=== PATIENT | male | born 1995 | race Caucasian/White ===

== ENCOUNTER 2022-05-05 17:31 | Emergency (ER) | payer MEDICAID ==
[~2022-05-05] VITALS: Ht 185.4 cm; Wt 79.5 kg
[~2022-05-05 17:31] MED LIST: NO HOME MEDS
[2022-05-05 18:20] VITALS: BP 118/62
== END 2022-05-05 19:30 | disposition home or self-care (01) ==
LOC: ER 17:31
DX: S93.401A Sprain of unspecified ligament of right ankle, initial encounter (principal); W21.07XA Struck by softball, initial encounter; Y93.89 Activity, other specified; Y92.89 Other specified places as the place of occurrence of the external cause; Y99.8 Other external cause status
CPT/HCPCS: 29530; 29540; 73610; 99283

== ENCOUNTER 2023-07-07 10:36 | Emergency (ER) | payer MEDICAID ==
[~2023-07-07] VITALS: Ht 185.4 cm; Wt 67.2 kg
[2023-07-07 10:40] VITALS: BP 119/71; PULSE 58; RESP 16; TEMP 97.8; O2SAT 100
[2023-07-07] MEDS ORDERED: proparacaine 0.5% ophthalmic drops 15ml EACHEYE ONE (11:15)
[2023-07-07] MEDS ORDERED: ciprofloxacin 0.3% 2.5ml ophthalmic solution LEFTEYE STA (11:32)
== END 2023-07-07 12:11 | disposition home or self-care (01) ==
LOC: ER 10:37
DX: T15.02XA Foreign body in cornea, left eye, initial encounter (principal); X58.XXXA Exposure to other specified factors, initial encounter; Y93.89 Activity, other specified; Y92.89 Other specified places as the place of occurrence of the external cause; Y99.8 Other external cause status
CPT/HCPCS: 65220; 99283; 99284

== ENCOUNTER 2023-09-06 09:05 | Emergency (ER) | payer MEDICAID ==
[~2023-09-06] VITALS: Ht 185.4 cm; Wt 76.3 kg
[2023-09-06 09:10] VITALS: BP 127/72; PULSE 98; TEMP 99.7; O2SAT 99
[2023-09-06] MEDS ORDERED: LIDO1ADH58 TOP (10:07)
[2023-09-06] MEDS ORDERED: IBUP-1986 PO (10:07)
[2023-09-06] MEDS ORDERED: ketorolac trometh. 30mg/ml inj. IM ONE (10:10)
[2023-09-06 10:20] VITALS: RESP 16
== END 2023-09-06 10:28 | disposition home or self-care (01) ==
LOC: ER 09:06
DX: R07.81 Pleurodynia (principal); W19.XXXA Unspecified fall, initial encounter; Y93.89 Activity, other specified; Y92.89 Other specified places as the place of occurrence of the external cause; Y99.8 Other external cause status
CPT/HCPCS: 71100; 96372; 99283; J1885

== ENCOUNTER 2024-03-01 09:04 | Emergency (ER) | payer MEDICAID ==
[~2024-03-01] VITALS: Ht 185.4 cm; Wt 78.6 kg
[~2024-03-01 09:04] MED LIST changes: +IBUP-1986 PO; +LIDO1ADH58 TOP
[2024-03-01] MEDS ORDERED: AMOX500C4 PO (10:53)
[2024-03-01] MEDS ORDERED: HYDR-3965 PO (10:53)
[2024-03-01 11:04] VITALS: BP 110/60; PULSE 60; RESP 17; TEMP 97.8; O2SAT 99
== END 2024-03-01 11:07 | disposition home or self-care (01) ==
LOC: ER 09:05
DX: K08.89 Other specified disorders of teeth and supporting structures (principal); Z88.4 Allergy status to anesthetic agent; Z88.6 Allergy status to analgesic agent
CPT/HCPCS: 99283

== ENCOUNTER 2024-11-24 08:25 | Emergency (ER) | payer BC, MEDICAID ==
[~2024-11-24] VITALS: Ht 185.4 cm; Wt 75.1 kg
[2024-11-24 10:05] VITALS: BP 130/76; PULSE 75; RESP 18; TEMP 97.7; O2SAT 98
== END 2024-11-24 10:06 | disposition home or self-care (01) ==
LOC: ER 08:26
DX: R09.81 Nasal congestion (principal); R05.9 Cough, unspecified
CPT/HCPCS: 71045; 99283

== ENCOUNTER 2024-12-01 16:06 | Emergency (ER) | payer BC ==
[~2024-12-01] VITALS: Ht 185.4 cm; Wt 79.7 kg
[2024-12-01] MEDS ORDERED: PSEU120T56 PO (16:50)
[2024-12-01] MEDS ORDERED: FLUT16SP2 BOTHNARES (16:50)
[2024-12-01 16:57] VITALS: BP 122/60; PULSE 78; RESP 16; TEMP 97.7; O2SAT 98
== END 2024-12-01 16:58 | disposition home or self-care (01) ==
LOC: ER 16:06
DX: H69.82 Other specified disorders of Eustachian tube, left ear (principal); Z79.1 Long term (current) use of non-steroidal anti-inflammatories (NSAID); Z79.899 Other long term (current) drug therapy
CPT/HCPCS: 99282; 99283

== ENCOUNTER 2024-12-19 09:55 | Emergency (ER) | payer BC ==
[~2024-12-19] VITALS: Ht 185.4 cm; Wt 81.8 kg
[~2024-12-19 09:55] MED LIST changes: +FLUT16SP2 BOTHNARES; +PSEU120T56 PO
[2024-12-19 10:06] VITALS: BP 115/68; PULSE 80; RESP 16; O2SAT 98
[2024-12-19 11:27] VITALS: TEMP 97.7
== END 2024-12-19 11:28 | disposition home or self-care (01) ==
LOC: ER 09:55
DX: H01.001 Unspecified blepharitis right upper eyelid (principal); Z79.1 Long term (current) use of non-steroidal anti-inflammatories (NSAID); Z79.899 Other long term (current) drug therapy
CPT/HCPCS: 99282

== ENCOUNTER 2025-06-16 18:43 | Emergency (ER) | payer BC ==
[~2025-06-16] VITALS: Ht 185.4 cm; Wt 72.7 kg
[2025-06-16 18:59] VITALS: TEMP 97.6
--- NOTE | 2025-06-16 19:56 | RADIOLOGY REPORT ---
CLINICAL INDICATION: FOOT PAIN LEFT TECHNIQUE: DI FOOT, COMPLETE (3VW MIN) Comparison: ANKLE, COMPLETE(3VW MIN) on DOS: 05/05/22 FINDINGS/IMPRESSION: : There is no evidence of acute fracture or dislocation. Soft tissues are unremarkable. Plantar calcaneal enthesophyte.
[2025-06-16 20:55] VITALS: BP 128/75; PULSE 51; RESP 17; O2SAT 98
--- NOTE | 2025-06-16 20:56 | Physician Documentation ---
History of Present Illness ~ Chief Complaint: Foot pain Stated Complaint: FOOT PAIN Time Seen by MD: 19:26 Primary Medical Doctor: NONE HPI Patient is seen today with complaints of a lump involving the lateral aspect of his left foot. Patient states it has been there for some time now but is now causing numbness and tingling to the distal distally of the lateral aspect of the left foot. 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 He has no other concern or complaint at this time. Tetanus witin 5 years: Yes Medication Reconciliation Allergies: Coded Allergies: No Known Allergies (Unverified , 12/01/24) Scheduled Fluticasone Propionate (Flonase), 2 SPRAYS BOTHNARES DAILY Ibuprofen (Ibuprofen), 1 TAB PO Q8H Lidocaine (Ztlido), 1 PATCH TOP DAILY Pseudoephedrine HCl (Sudafed 12 Hour), 1 TAB PO Q12H Miscellaneous Medications Home Med List (No Home Medications), (Reported) Past Medical History Past Medical History: No Pertinent History Past Surgical History: noncontributory Lives with: Family Lives In: Home Occupation: employed Review of Systems Constitutional: Denies: chills, fever, weakness Eyes: Denies: pain, blurred vision ENT: Denies: ear pain, nose pain, throat pain, mouth pain Respiratory: Denies: cough, shortness of breath Cardiovascular: Denies: chest pain, palpitations Gastrointestinal: Denies: abdominal pain, nausea, vomiting Genitourinary: Denies: burning, dysuria Male Genitalia: Denies: penile discharge, testicular pain Neurological: Denies: headache, dizziness Musculoskeletal: Denies: pain, swelling Integumentary: Denies: rash, lesions Allergic/Immunologic: Denies: hives, itching Hematologic/Lymphatic: Denies: no symptoms reported Psychiatric: Denies: depression, anxiety Physical Exam Vital Signs: Temperature: 97.6, Heart Rate: 83, Respiratory Rate: 14, BP: 121/72, Pulse Oximetry: 100, Weight: 72.730 Oxygen Flow Rate: 0 Physical Exam General: Awake and Alert, no acute distress. HEENT: Conjunctiva pink, Sclera clear, Mucus Membranes moist. Neck: Supple without masses and tenderness. Resp: Unlabored. Lungs clear to auscultation bilaterally. Heart: Regular Rate and rhythm, normal S1 and S2 without murmur, rub or gallop. Musculoskeletal: Patient on exam does have large marble size mass of the left lateral foot just distal to the lateral malleoli that does transilluminate on exam. Patient does have diminished light touch sensation distally to this mass. Masses consistent with a ganglion cyst. Extremities: No cyanosis,clubbing or edema. Skin: Warm and Dry. Progress Results/Orders Results/Orders Vital Signs 06/16/25 18:59 Temp 97.6 Pulse 83 Resp 14 B/P (MAP) 121/72 Pulse Ox 100 O2 Flow Rate 0 EKG/XRAY/CT/US/VASC/MRI Bone/Soft Tissue X-Ray (Ext.) : Additional Comment X-ray of the left ankle interpreted by myself today shows no sign of acute fracture, bones in anatomic alignment, no osteolytic or blastic lesions. DIAGNOSTIC RADIOLOGY Patient: ADELAIDE HOLDEN Medical Record: [id number] [facility] : 1995, Age: 29 Sex: Male Location: ER Patient Status: [facility] ER Service Date/Time: 06/16/251911 Ordering Physician: SINAN MERLOS MD Exam: FOOT, COMPLETE (3VW MIN) CLINICAL INDICATION: FOOT PAIN LEFT TECHNIQUE: DI FOOT, COMPLETE (3VW MIN) Comparison: ANKLE, COMPLETE(3VW MIN) on DOS: 05/05/22 FINDINGS/IMPRESSION: : There is no evidence of acute fracture or dislocation. Soft tissues are unremarkable. Plantar calcaneal enthesophyte. Electronically Signed by:CAESAR MOONEY MD Date & Time: 06/16/251952 Dictated by: CAESAR MOONEY MD Dictation date and time: 06/16/251952 Primary Care Provider: NO PRIMARY CARE PROVIDER cc: SINAN MERLOS MD ~ Medical Decision Making Findings Patient is seen today with complaints of a lump involving the lateral aspect of his left foot. Patient states it has been there for some time now but is now causing numbness and tingling to the distal distally of the lateral aspect of the left foot. 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 He has no other concern or complaint at this time. Patient did have x-ray of the left ankle that showed no sign of acute fracture. Patient will follow up with orthopedic foot and ankle specialist for consultation of ganglion cyst of left ankle. Return to ED with any worsening, concerning or changing symptoms. Patient will be kept off work for one week. Departure Disposition: 01 HOME / SELF CARE / HOMELESS Impression: Primary Impression: Ganglion of ankle and foot Condition: Stable Discharge Instructions: Ganglion Cyst Additional Instructions: Patient did have x-ray of the left ankle that showed no sign of acute fracture. Patient will follow up with orthopedic foot and ankle specialist for consultation of ganglion cyst of left ankle. Return to ED with any worsening, concerning or changing symptoms. Patient will be kept off work for one week. Departure Forms: Excuse form Work or School Excused From: Work Excuse beginning now through the following date: Jun 23, 2025 Referrals: NO PRIMARY CARE PROVIDER (PCP) Signature Scribe Signature: No scribe Attestation: No scribe MUNA OLIVARES Jun 16, 2025 20:56
== END 2025-06-16 21:19 | disposition home or self-care (01) ==
LOC: ER 18:43
DX: M67.472 Ganglion, left ankle and foot (principal)
CPT/HCPCS: 73630; 99283